=== PATIENT | male | born 1995 | race African-American/Black ===

== ENCOUNTER 2017-08-02 09:33 | Emergency (ER) | payer OTHER ==
[~2017-08-02] VITALS: Ht 190.5 cm; Wt 100.0 kg
[2017-08-02] MEDS ORDERED: NORCOTAB PO (12:19)
[2017-08-02 12:31] VITALS: BP 156/79
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
== END 2017-08-02 12:33 | disposition home or self-care (01) ==
LOC: M ED 09:33
DX: S22.31XA Fracture of one rib, right side, initial encounter for closed fracture (principal); S43.401A Unspecified sprain of right shoulder joint, initial encounter; S50.01XA Contusion of right elbow, initial encounter; S10.91XA Abrasion of unspecified part of neck, initial encounter; Z72.0 Tobacco use; V49.40XA Driver injured in collision with unspecified motor vehicles in traffic accident, initial encounter; Y92.410 Unspecified street and highway as the place of occurrence of the external cause; Y93.89 Activity, other specified; Y99.9 Unspecified external cause status